=== PATIENT | female | born 1965 | race Caucasian/White ===

== ENCOUNTER 2019-12-27 09:36 | Emergency (ER) | payer BC ==
[~2019-12-27] VITALS: Ht 162.6 cm; Wt 120.2 kg
[~2019-12-27 09:36] MED LIST: ASPIRIN325 MG PO; KEFLEX500 MG PO; LOPRESSOR25 MG PO; NAPROXEN500 MG PO; PEPCID20 MG PO; SYNTHROID125 MCG PO; TRIAMTERENE-HC1 EAC1
[2019-12-27] MEDS ORDERED: FAMOTIDINE 20 MG/2 ML VIAL IV STA (09:45)
[2019-12-27] MEDS ORDERED: DEXAMETHASONE SOD PHOS 10 MG/1 ML VIAL IV ONE (09:45)
[2019-12-27] MEDS ORDERED: DEXAMETHASONE SOD PHOS 10 MG/1 ML VIAL ONE (10:00)
--- NOTE | 2019-12-27 10:00 | Emergency Department Note ---
History of Present Illnes History of Present Illness Chief Complaint: General Medicine Complaints History of Present Illness This is a 54 year old female Chief Complaint Comment pt came in via POV for c/o allergic reaction, pt states that she was prescribed Levaquin for her sinus infection and she took her first dose today, immediate onset of rash and hives, pt does not appear to be in respiratory distress. Historian: Patient Arrival Mode: Car Insurance Loss Adjuster Required: No Onset (how long ago): hour(s) Location: Diffuse Quality: Rash Radiation: Reports non-radiation Severity: moderate Onset quality: sudden Duration (how long): hour(s) Timing of current episode: constant Progression: worsening Chronicity: new Context: Reports recent illness (Sinus infection); Denies recent surgery Relieving factors: none Exacerbating factors: none Associated symptoms: Reports denies other symptoms Treatments prior to arrival: other (Benadryl 50mg) Past Medical/Family History Physician Review I have reviewed the patient's past medical and family history. Any updates have been documented here. Past Medical History Recent Fever: No Clinical Suspicion of Infectio: No New/Unexplained Change in Ment: No Other Medical History: graves osteo arthitis mrsa Hyperlipidemia Other Surgery: knee replacement left Other Last Tetanus: unk Review of Systems Review of Systems Constitutional: Reports no symptoms EENTM: Reports no symptoms Cardiovascular: Reports no symptoms Respiratory: Reports no symptoms Gastrointestinal: Reports no symptoms Genitourinary: Reports no symptoms Musculoskeletal: Reports no symptoms Integumentary: Reports as per HPI Neurological: Reports no symptoms Psychological: Reports no symptoms Endocrine: Reports no symptoms Hematological/Lymphatic: Reports no symptoms Physical Exam Related Data Allergies: Coded Allergies: Sulfa (Sulfonamide Antibiotics) (Verified Allergy, Unknown, 12/27/19) hydrocodone (Verified Allergy, Unknown, 12/27/19) vancomycin (Verified Allergy, Unknown, 12/27/19) Triage Vital Signs Vital Signs Date Time Temp Pulse Resp B/P (MAP) Pulse Ox O2 Delivery O2 Flow Rate FiO2 12/27/19 09:49 98.1 102 17 188/76 100 Room Air Vital signs reviewed: Yes Physical Exam CONSTITUTIONAL Constitutional: Present well-developed, Present well-nourished HENT HENT: Present normocephalic, Present atraumatic, Present oropharynx clear/moist, Present nose normal HENT L/R: Present left ext ear normal, Present right ext ear normal EYES Eyes: Reports PERRL, Reports conjunctivae normal NECK Neck: Present ROM normal PULMONARY Pulmonary: Present effort normal, Present breath sounds normal CARDIOVASCULAR Cardiovascular: Present regular rhythm, Present heart sounds normal, Present capillary refill normal, Present normal rate GASTROINTESTINAL Abdominal: Present soft, Present nontender, Present bowel sounds normal GENITOURINARY Genitourinary: Present exam deferred SKIN Skin: Present warm, Present dry, Present rash (Diffuse urticarial) MUSCULOSKELETAL Musculoskeletal: Present ROM normal NEUROLOGICAL Neurological: Present alert, Present oriented x 3, Present no gross motor or sensory deficits PSYCHOLOGICAL Psychological: Present mood/affect normal, Present judgement normal Assessment & Plan Medical Decision Making MDM 54-year-old female with past medical history of recent sinus infection presents for allergic reaction to levofloxacin. She is taking this for her sinus infection. She has had this before. Examination shows diffuse urticarial rash with no signs of airway compromise, no wheezes, no oral swelling. She alert he took 50 mg of Benadryl and will give famotidine as well as Decadron emergency department. Instructed her to follow up with her primary care doctor. Primary care doctor is changing her antibiotic regimen. She is observed for 1 hour in the emergency department and is somewhat improved. Will prescribe EpiPen. She is appropriate for discharge. Assessment & Plan Final Impression: (1) Allergic reaction caused by a drug Depart Disposition: HOME, SELF-CARE Last Vital Signs Date Time Temp Pulse Resp B/P (MAP) Pulse Ox O2 Delivery O2 Flow Rate FiO2 12/27/19 09:49 98.1 102 17 188/76 100 Room Air Home Meds Reported Medications Cephalexin Monohydrate (KEFLEX) 500 Mg Capsule, 1 TAB PO Q12H KEFLEX 500 MG BY MOUTH Q 12 H X 5 DAYS 10/05/15 Famotidine (PEPCID) 20 Mg Tablet, 20 MG PO BIDWM, #60 TAB 10/05/15 Aspirin (ASPIRIN) 325 Mg Tablet, 325 MG PO DAILY, TAB 10/05/15 Metoprolol Tartrate (LOPRESSOR) 25 Mg Tab, 25 MG PO Q12H, #60 TAB 10/05/15 Naproxen (NAPROXEN) 500 Mg Tablet, 1 PO DAILY 02/18/15 Levothyroxine Sodium (SYNTHROID) 125 Mcg Tab, 125 MCG PO 0630, #30 TAB 02/18/15 Medications in the ED Famotidine 20 mg NOW STAT IV ; Start 12/27/19 at 09:45; Stop 12/27/19 at 09:52; Status DC Dexamethasone Sodium Phosphate 10 mg ONCE ONCE IV ; Start 12/27/19 at 09:45; Stop 12/27/19 at 09:52; Status DC Dexamethasone Sodium Phosphate 10 mg STK-MED ONCE .ROUTE ; Start 12/27/19 at 10:00; Stop 12/27/19 at 09:53; Status DC JOSHUA PERKINS MD Dec 27, 2019 10:00
--- OUTSIDE RECORDS SUMMARY | 2019-12-27 10:35 | XMS REPORT | Continuity of Care Document ---
Author Author Billy Jameelbrittanie Bhatt ALISIA DO [facility] [place] Address Unknown Phone Unavailable Care Team Providers Care Market Relationship Manager Name Role Phone [facility] Information Exchange Unavailable Un available Problems Problem Status Onset Date Classification Date Reported Comments Source SCREENING Active 08/30/2019 [facility] K21.9 Active 11/24/2017 [facility] UNK Active 1 [facility] SCREENING NO PAIN,NO LUMPS,NO IMPLANT Active 11/18/2017 [facility] DX: ROUTINE SCREENING Active 07/08/2016 [facility] Encounter for screening mammogram for ma lignant neoplasm of breast 09/02/2019 [facility] Medications No Data Provided for This Section Allergies, Adverse Reactions, Alerts Substance Category Reaction Severity Reaction type Status Date Reported Comments Source sulfa drugs Assertion Drug allergy Active [facility] Immunizations No Data Provided for This Section Results No Data Provided for This Section Pathology Reports No Data Provided for This Section Diagnostic Reports Report Value Date Source Breast Mammo Scrn BRYAN w lazaro incl CAD MA BILATERAL DIGITAL SCREENING MAMMOGRAM 3D/2D WITH CAD: 08/31/2019 CLINICAL: Z12.31 Routine Screening Mammogram. Current study was evaluated with a Computer Aided Detection (CAD) system. COMPARISON:Comparison is made to exams dated: 11/18/2017 mammogram, 10/21/2016 mammogram, 06/09/2013 mammogram, 11/12/2011 mammogram - [facility], and 11/26/2004. TECHNIQUE: Digital Breast Tomosynthesis was performed and utilized for Interpretation. [employer] Version 1.3 was utilized for computer aided detection. FINDINGS: There are scattered fibroglandular densities in both breasts. There are benign calcifications and masses in both breasts. No significant masses, calcifications, or other findings are seen in either breast. There has been no significant interval change. IMPRESSION: BENIGN RECOMMENDATION:There is no mammographic evidence of malignancy. A 1 year screening mammogram is recommended.(08/31/2020) This exam was interpreted at [id number] for [facility]. Lali Garcia M.D. as/penrad:08/31/2019 16:18:12 Flight Readiness Technician(s): Vera Estes, [facility] letter sent: BI-RADS 1/2 Mammogram BI-RADS: 2 Benign 08/31/2019 [facility] Breast Mammo Scrn BRYAN incl CAD MA BILATERAL DIGITAL SCREENING MAMMOGRAM WITH CAD WITH ADDITIONAL VIEWS: 11/18/2017 CLINICAL: Screening/Z12.31. Current study was evaluated with a Computer Aided Detection (CAD) system. COMPARISON:Comparison is made to exams dated: 10/21/2016 mammogram, 06/09/2013 mammogram, 11/12/2011 mammogram - [facility], 11/26/2004, and 06/10/2001 mammogram. TECHNIQUE: Mammographic views were obtained using digital acquisition. [employer] Version 1.3 was utilized for computer aided detection. FINDINGS: There are scattered fibroglandular densities in both breasts. There are benign appearing calcifications and nodules in the right breast. There also are benign appearing calcifications and densities in the left breast. No significant masses, calcifications, or other findings are seen in either breast. There has been no significant interval change. IMPRESSION: BENIGN RECOMMENDATION:There is no mammographic evidence of malignancy. A 1 year screening mammogram is recommended.(11/19/2018) This exam was interpreted at [id number] for [facility]. True Yao M.D. jt/penrad:11/18/2017 14:11:42 Flight Readiness Technician(s): Stephanie Pinto, [facility] letter sent: BI-RADS 1/2 Mammogram BI-RADS: 2 Benign 11/18/2017 [facility] Breast Mammo Scrn BRYAN incl CAD MA - BREAST MAMMO SCRN BRYAN INCL CAD MA BILATERAL DIGITAL SCREENING MAMMOGRAM WITH CAD: 10/21/2016 CLINICAL: V76.12 Routine/Screening. Current study was evaluated with a Computer Aided Detection (CAD) system. Comparison is made to exams dated: 06/09/2013 mammogram, 11/12/2011 mammogram - [facility], 11/26/2004 and 06/10/2001 mammogram. There are scattered fibroglandular densities in both breasts. There are benign appearing calcifications in both breasts. There also are benign appearing nodules in the right breast. Additionally there are benign appearing densities in the left breast. No significant masses, calcifications, or other findings are seen in either breast. There has been no significant interval change. IMPRESSION: BENIGN There is no mammographic evidence of malignancy. A 1 year screening mammogram is recommended. True chaudhry/penrad:10/21/2016 14:51:42 Flight Readiness Technician: Vera Mendoza, [facility] This exam was dictated and interpreted by [id number] for [facility]. letter sent: Normal exam Mammogram BI-RADS: 2 Benign 10/21/2016 [facility] Digital Mammo Screening [place] MA - DIGITAL MAMMO SCREENING BRYAN MA BILATERAL DIGITAL SCREENING MAMMOGRAM WITH CAD: 06/09/2013 CLINICAL: Other Screening Mammogram. Current study was evaluated with a Computer Aided Detection (CAD) system. Comparison is made to exams dated: 11/12/2011 mammogram - [facility], 11/26/2004 and 06/10/2001 mammogram. There are scattered fibroglandular densities in both breasts. There are benign appearing calcifications in both breasts. There also are benign appearing nodules in the right breast. Additionally there are benign appearing densities in the left breast. No significant masses, calcifications, or other findings are seen in either breast. There has been no significant interval change. IMPRESSION: BENIGN There is no mammographic evidence of malignancy. A screening mammogram in one year is recommended. True chaudhry/penrad:06/12/2013 07:56:00 Flight Readiness Technician: Delores Gregorio, [facility] This exam was dictated and interpreted by [id number] for [facility]. letter sent: Normal exam Mammogram BI-RADS: 2 Benign 06/09/2013 [facility] Consultation Notes No Data Provided for This Section Discharge Summaries No Data Provided for This Section History and Physicals No Data Provided for This Section Vital Signs No Data Provided for This Section Encounters Location Location Details Encounter Type Encounter Number Reason For Visit Attending Provider ADM Date DC Date Status Source [facility] Outpatient [id number] Lopez Carson 06/09/2013 06/10/[address] [facility] [place] [place] Outpatient [id number] Lopez Carson 10/21/2016 10/22/[address] [facility] [place] [place] Outpatient [id number] Lopez Carson 11/18/2017 11/19/[address] [facility] [place] [place] Bedded Outpatient [id number] Kyree Umanzorkvng 12/13/2017 12/13/[address] [facility] [place] [place] Outpatient [id number] Rose Fredi 08/31/2019 09/01/2019 [facility] Procedures No Data Provided for This Section Assessment and Plan No Data Provided for This Section Plan of Care No Data Provided for This Section Social History Social History Date Source Social History TypeResponse 09/01/2019 [facility] Family History No Data Provided for This Section Advance Directives No Data Provided for This Section Functional Status No Data Provided for This Section
--- OUTSIDE RECORDS SUMMARY | 2019-12-27 10:35 | XMS REPORT | Continuity of Care Document ---
Author Author [facility] t Organization [facility] Address [address] [place] [address] Phone Unavailable Care Team Providers Care Intravenous Therapy Nurse Name Role Phone Rose Rai Attphys Unavailable Miguel Ángel Bartlett Attphys Eleanor Carson Attphys Problems Condition Name Condition Details Condition Category Status Onset Date Resolution Date Last Treatment Date Treating Clinician Comments Source SCREENING SCRE ENING Active 08/30/2019 [facility] Active 2019-08-30 00:00:00 2019-08-31 12[facility]48[facility] K[facility].9 K21. 9 Active 11/24/2017 [facility] Active 2017-11-24 00:00:00 2018-02-25 15:24:[facility] UNK UNK Active 11/24/2017 [facility] Active 2017-11-24 00:00:00 2017-12-09 15:38:00 [facility] S[facility]EN[facility] NO PAIN,NO LUMPS,NO IMPLANT SCREENING NO PAIN,NO LUMPS,NO IMPLANT Active 11/18/2017 [facility] Ac tive 2017-11-18 00:00:00 2017-11-18 14:06:00 [facility]: ROUTINE SCREENING DX: ROUTINE SCREENING Active 07/08/2016 [facility] Active 2016-07-08 00:00:00 2016-10-21 13:02: 00 [facility] Encounter for screening mammogram for malignant neopla sm of breast Encounter for screening mammogram for malignant neoplasm of breast 09/02/2019 [facility] Problem 2019-09-02 22:41:[facility] Allergies, Adverse Reactions, Alerts Allergy Name Allergy Type Status Severity Reaction(s) Onset Date Inacti ve Date Treating Clinician Comments Source sulfa drugs sulfa drugs Active [facility] Medications This patient has no known medications. Procedures This patient has no known procedures. Encounters Start Date/Time End Date/Time Encounter Type Admission Type [facility] Care Department Encounter ID Source 2019-08-31 12:39:00 2019-08-31 23:59:00 Outpatient Rose Rai [facility] [id number] 2019-08-31 12:39:00 2019-08-31 12:39:00 [facility]patient [id number] 2017-12-13 08:30:00 2017-12-13 08:30:00 Outpatient Kyree Bartlett [facility] [id number] 2017-11-18 12:58:00 2017-11-18 23:59:00 [facility] [id number] 2016-10-21 12:52:00 2016-10-21 23:59:00 [facility] [id number] 2013-06-09 12:20:00 2013-06-09 23:59:00 [facility] [id number] Results This patient has no known results.
[2019-12-27 10:50] VITALS: BP 123/87
== END 2019-12-27 10:52 | disposition home or self-care (01) ==
LOC: ER 10:32
DX: L27.0 Generalized skin eruption due to drugs and medicaments taken internally (principal); T36.8X5A Adverse effect of other systemic antibiotics, initial encounter; E78.5 Hyperlipidemia, unspecified; Z86.14 Personal history of Methicillin resistant Staphylococcus aureus infection
CPT/HCPCS: 99283; J1100